=== PATIENT | male | born 1950 | race Caucasian/White ===

== ENCOUNTER 2018-04-23 10:52 | Emergency (ER) | payer MEDICARE ==
[2018-04-23 11:24] LABS: BASOPHILS % (AUTO) 0.7 % (0.0-5.0); EOSINOPHILS % (AUTO) 2.4 % (0.0-8.0); HEMATOCRIT 42.1 % (42-54); LYMPHOCYTES % (AUTO) 24.4 % (21.0-51.0); MEAN CORPUSCULAR HEMOGLOBIN 35.6 pg (27.0-33.0); MEAN CORPUSCULAR HGB CONC 35.5 g/dL (32.0-36.0); MEAN CORPUSCULAR VOLUME 100.4 fL (79-99); MONOCYTES % (AUTO) 7.7 % (3.0-13.0); NEUTROPHILS % (AUTO) 64.8 % (40.0-77.0); PLATELET COUNT (AUTO) 148 K/uL (130-400); RED BLOOD CELL COUNT(AUTO) 4.19 MIL/uL (4.50-6.20); RED CELL DISTRIBUTION WIDTH 13.2 % (11.0-15.5); WHITE BLOOD COUNT (AUTO) 4.7 K/uL (4.8-10.8)
[2018-04-23 11:35] LABS: CREATININE 1.1 mg/dL (0.5-1.5); POTASSIUM 4.2 mmol/L (3.5-5.1)
[2018-04-23 11:40] LABS: ALBUMIN 3.9 g/dL (3.5-5.0); BILIRUBIN,TOTAL 0.9 mg/dL (0.2-1.0); TOTAL PROTEIN, SERUM 7.3 g/dL (6.0-8.3)
[2018-04-23 15:23] LABS: T4 (THYROXINE) 8.3 mcg/dL (4.7-13.3); THYROID STIMULATING HORMONE 2.97 uIU/mL (0.36-3.74)
== END 2018-04-23 15:43 | disposition home or self-care (01) ==
LOC: EDH 10:52
DX: R00.2 Palpitations (principal); I10 Essential (primary) hypertension; E78.5 Hyperlipidemia, unspecified; Z88.0 Allergy status to penicillin; Z87.891 Personal history of nicotine dependence; Z90.49 Acquired absence of other specified parts of digestive tract
CPT/HCPCS: 36415; 71045; 80053; 82550; 83735; 83880; 84436; 84443; 84484; 85025; 93005

== ENCOUNTER → 2018-12-07 | Outpatient (CLI) | payer MEDICARE | END | disposition home or self-care (01) | LOC: LAB 14:25 | PROVIDERS: ATTEND Student in an Organized Health Care Education/Training Program | DX: L57.0 Actinic keratosis (principal); D48.9 Neoplasm of uncertain behavior, unspecified | CPT/HCPCS: 88305 ==

== ENCOUNTER → 2024-03-20 | Outpatient (CLI) | payer MEDICARE, SELFPAY ==
--- NOTE | 2024-03-20 12:53 | HMCIMG ---
MR SPINAL CANAL, LUMBAR WO CON HISTORY: No additional history given. COMPARISON: None TECHNIQUE: MRI of the lumbar spine was performed utilizing multiple pulse sequences in axial , coronal and sagittal plane. Patient was not given contrast through intravenous route. FINDINGS: No abnormal signal intensity is seen of the visualized bony structure. No loss of vertebral height is seen. There is straightening of normal lumbar curvature which may be related to muscle spasm or positioning. Degenerative disc signals are present at L1-L2 through L5-S1 levels worse at L3-4 and L4-5 levels. Visualized distal conus is unremarkable. At the L1-L2 level, there is mild annular disc bulge with bilateral ligamentum flavum hypertrophy measuring 2.5 mm in thickness causing anterior thecal sac compression with bilateral lateral recess stenosis and minimal bilateral neural foraminal stenosis. The thecal sac measures approximately 11 mm in its anterior posterior dimension. At the L2-3 level, there is mild annular disc bulge with bilateral ligamentum flavum hypertrophy measuring 2 3.3 mm in thickness causing anterior thecal sac compression with bilateral lateral recess stenosis and minimal bilateral neural foraminal stenosis. The thecal sac measures approximately 8.9 mm in its anterior posterior dimension. At the L3-4 level, there is mild annular disc bulge with bilateral ligamentum flavum hypertrophy measuring 5.2 mm in thickness causing anterior thecal sac compression with bilateral lateral recess stenosis and mild bilateral neural foraminal stenosis. The thecal sac measures approximately 4.9 mm in its anterior posterior dimension. At the L4-5 level, there is mild annular disc bulge with bilateral ligamentum flavum hypertrophy measuring 3.8 mm in thickness causing anterior thecal sac compression with bilateral lateral recess stenosis and mild bilateral neural foraminal stenosis. The thecal sac measures approximately 4.6 mm in its anterior posterior dimension. At the L5-S1 level, there is spondylotic disc causing anterior thecal sac compression with bilateral lateral recess stenosis and mild bilateral neural foraminal stenosis. The thecal sac measures approximately 9.3 mm in its anterior posterior dimension. IMPRESSION: 1. Findings as described above. DJD with lumbar spine spondylosis worse at L3-4, L4-5 and L5-S1 levels.
== END | disposition home or self-care (01) ==
LOC: RAH 03-17 14:13
PROVIDERS: ATTEND Pediatrics Neonatal-Perinatal Medicine
DX: M47.817 Spondylosis without myelopathy or radiculopathy, lumbosacral region (principal); M48.07 Spinal stenosis, lumbosacral region; M51.369 Other intervertebral disc degeneration, lumbar region without mention of lumbar back pain or lower extremity pain; M54.50 Low back pain, unspecified; M54.30 Sciatica, unspecified side
CPT/HCPCS: 72148